=== PATIENT | male | born 1945 | race Caucasian/White ===

== ENCOUNTER 2019-01-16 14:44 | Emergency (ER) | payer OTHER, SELFPAY ==
[2019-01-16 14:55] VITALS: BP 148/82; PULSE 75; RESP 16; TEMP 36.8; O2SAT 97
--- NOTE | 2019-01-16 15:14 | DI.RAD_ITS ---
SYMPTOMS/DIAGNOSIS: ANTERIOR LACERATION FROM CHAINSAW, ? BONY INVOLVEMENT LEFT TIBIA AND FIBULA: No fracture is identified. Vascular calcifications are seen. There are degenerative changes of the knee. IMPRESSION: No acute abnormality.
--- NOTE | 2019-01-16 15:16 | ED.GENADUL_ITS ---
Discharge Plan Disposition Patient Disposition: HOME Condition: Improving Discharge Details Chief Complaint: Laceration Clinical Impression: Laceration of left lower leg Primary Care Provider: [facility] Provider: Graeme Mackey Home Meds and New Rx's Prescriptions: No Action epinephrine [EpiPen] 0.3 mg/0.3 mL Auto-Injector 0.3 mg IM DIRECTED RF: 0 enalapril maleate 10 mg Tablet 10 mg PO DAILY RF: 0 verapamil 180 mg Tablet Extended Release 180 mg PO DAILY RF: 0 atorvastatin 20 mg Tablet 20 mg PO DAILY RF: 0 latanoprost 0.005 % Drops 1 drp OPHTHALMIC (EYE) HS RF: 0 diclofenac sodium 100 mg Tablet Extended Release 24 Hr 50 mg PO PRN PRNRF: 0 Zenpep 40,000-126,000- 168,000 unit Capsule,Delayed Release(Dr/Ec) 1 cap PO AC RF: 0 Discharge Instructions Instructions: Care For Your Stitches (ED), Laceration (ED) Additional Instructions: Continue to keep wound clean and dry and leave initial dressing on preferably the first 24 to 48 hours. After that you may apply bandages if wound will be in a dirty environment otherwise leave open to air. If you notice any signs of infection or new or worsening symptoms please have reassessment performed either in the emergency department or prior primary care to ensure wound is healing well. Otherwise have sutures removed in 12 days. Referrals: Primary Care Provider [Outside] Discharge Data Discharge Date/Time-TO BE ENTERED AT DEPARTURE: 01/16/19 17:04 Medical Decision Making Patient presenting to the emergency department for chief complaint of left lower leg laceration. Patient states he was using a chainsaw and had an only idling when he was going to move positions and accidentally lacerated his left anterior nunez. Patient denies any injury or trauma, numbness or tingling, or inability dysfunction of the extremity. Physical exam shows a 5.5 cm laceration into the subcutaneous tissue of the left anterior nunez, pulse, motor, sensory intact distal to injury. Otherwise unremarkable examination. Plan to do radiological imaging of the left tib-fib to rule out any bony involvement. Patient states that tetanus has been at least greater than 5 years old and is unsure of exact date he last had tetanus. Plan to update Tdap. Verbal consent obtained for wound repair. After injection of 1% lidocaine with epinephrine was instilled locally wound was thoroughly irrigated and skin was cleansed with Betadine. No contamination or foreign body was noted and skin is just into subcutaneous tissue. #6 simple interrupted sutures were placed 3-0 Prolene. Patient tolerated procedure well. Skin glue was applied to distal aspect of wound given skin avulsion that was superficial and to help with hemostasis. Return precautions were discussed and patient to follow-up with primary care provider when he returns home in 12 days for suture removal. HPI General Mode of arrival: ambulatory . Date/Time Provider Initiated Documentation: 01/16/19 15:06 . Limitations to Documentation: no limitations . Information obtained by: patient, family and RN notes reviewed . History of P resent Illness 73 year old M presents to the emergency department with the chief complaint of Left leg laceration, described as mild, with intensity rated at 2. Quality is described as sharp, and is localized to the left and lower extremity. Patient started experiencing this hour(s) (1) and it has been constant. Patient notes no other symptoms.. Patient did receive the following treatments prior to arrival, none Related Data Home Medications Medication Instructions Recorded Confirmed atorvastatin 20 mg PO DAILY 01/16/19 01/16/19 diclofenac sodium 50 mg PO PRN PRN 01/16/19 01/16/19 enalapril maleate 10 mg PO DAILY 01/16/19 01/16/19 epinephrine [EpiPen] 0.3 mg IM DIRECTED 01/16/19 01/16/19 latanoprost 1 drp OPHTHALMIC (EYE) HS 01/16/19 01/16/19 [id number] [Zenpep] 1 cap PO AC 01/16/19 01/16/19 verapamil 180 mg PO DAILY 01/16/19 01/16/19 Allergies Allergy/AdvReac Type Severity Reaction Status Date / Time bee pollen Allergy Severe anaphylaxis Unverified 01/16/19 15:00 General Stated Complaint: Laceration AUDRA: 4 Review of Systems Cardiovascular Denies syncope and Denies lightheadedness Musculoskeletal Denies deformity, Denies limited range of motion and Denies numbness Integumentary/Breasts Reports as per HPI Neurologic Denies syncope, Denies numbness and Denies paresthesias PFSH Social History Smoking/Tobacco Use Status: Former Tobacco Use Alcohol Intake: current Alcohol Intake frequency: 0-2 drinks per day Alcohol type: beer Drug use: Never Do you feel safe at home: Yes Do you feel safe in your relationship?: Yes Exam Const General: cooperative and no acute distress Orientation: alert, awake and oriented x3 Limitations: mental status not altered Resp Effort & Inspection: normal respiratory effort and able to speak in complete sentences Cardio Rate: regular rate Rhythm: regular rhythm Skin Trauma: laceration left anterior lower leg linear, irregular, contaminated, involves subcutaneous tissue, motor nerve function intact and sensation intact Course Vital Signs Temperature 36.8 C 01/16/19 14:55 Pulse 75 01/16/19 14:55 Respiratory Rate 16 01/16/19 14:55 Blood Pressure 148/82 H 01/16/19 14:55 Pulse Oximetry 97 01/16/19 14:55 Temperature 36.8 C 01/16/19 14:55 Temperature Source Skin 01/16/19 14:55 Pulse 75 01/16/19 14:55 Respiratory Rate 16 01/16/19 14:55 Respiratory Effort 01/16/19 15:05 Blood Pressure 148/82 H 01/16/19 14:55 Blood Pressure Position Sitting 01/16/19 14:55 Pulse Oximetry 97 01/16/19 14:55 Oxygen Delivery Method Room Air 01/16/19 14:55 Oxygen Flow Rate 0 01/16/19 14:55 Pain Level 2 01/16/19 15:06
--- NOTE | 2019-01-16 16:06 | DI.VRAD_ITS ---
EXAM: XR Left Tibia and Fibula EXAM DATE/TIME: 01/16/2019 3:41 PM CLINICAL HISTORY: 73 years old, male; Pain; Other: Anterior laceration TECHNIQUE: Imaging protocol: XR Left tibia and fibula. Views: 2 views. COMPARISON: No relevant prior studies available. FINDINGS: Bones/joints: There is no fracture dislocation or abnormal periosteal reaction. 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 Soft tissues: There is no radiopaque foreign body.There is no gas in the soft tissue. Vasculature: There is moderate atherosclerosis. IMPRESSION: No evidence of acute fracture or abscess. Dictated and Authenticated by: Mark Romero MD. Ordering:JANELL Bedolla MD
--- NOTE | 2019-01-16 16:55 | NUR.NOTE ---
6 sutures placed by business services vice president area dressed with csd prior to dc dc reviewed with pt able to verblize understanding Nursing Note:
== END 2019-01-16 17:04 | disposition home or self-care (01) ==
PROVIDERS: Emergency Provider Nurse Practitioner Family
DX: S81.812A Laceration without foreign body, left lower leg, initial encounter (principal); W29.3XXA Contact with powered garden and outdoor hand tools and machinery, initial encounter
CPT/HCPCS: 12002; 90471; 99283; 73590; 99282